=== PATIENT | female | born 1985 ===

== ENCOUNTER 2021-02-04 11:19 | Emergency (ER) | payer SELFPAY ==
[~2021-02-04] VITALS: Ht 167.6 cm; Wt 75.0 kg
--- NOTE | 2021-02-04 12:07 | NUR ---
FIRST CONTACT: C/O LOWER ABD PAIN RADIATES TO RUQ X2 DAYS, +N/V/D. PT TO BED AND POSITIONED TO COMFORT. ATTACHED TO MONITORS. VSS. AWAITING ORDERS.
--- NOTE | 2021-02-04 12:47 | NUR ---
DR. SALOMON TO BEDSIDE FOR EVALUAITON.
[2021-02-04] MEDS ORDERED: ONDANSETRON 2MG/ML, 2ML ONE (12:50)
[2021-02-04] MEDS ORDERED: MORPHINE SULFATE 4 MG/ML, 1ML ONE ×2 (12:50→13:25)
[2021-02-04] MEDS: MORPHINE SULFATE 4 MG/ML, 1ML IVPush PRN ×2 (12:55→13:27)
[2021-02-04 12:58] VITALS: BP 117/85
--- NOTE | 2021-02-04 12:58 | NUR ---
PT MEDIATED PER EMAR. VSS. DR. SALOMON EVALUATED
[2021-02-04] MEDS ORDERED: SODIUM CHLORIDE FLUSH 10ML SYR IVF ONE (13:00)
[2021-02-04] MEDS ORDERED: ONDANSETRON 2MG/ML, 2ML IVPush ONE (13:00)
[2021-02-04] MEDS ORDERED: SODIUM CHLORIDE 0.9% 1,000ML IVBOLUS ONE (13:00)
[2021-02-04 13:02] LABS: BASOPHILS % (AUTO) 0 % (0-1); EOSINOPHILS % (AUTO) 2 % (1-7); LYMPHOCYTES % (AUTO) 36 % (22-44); MEAN CORPUSCULAR HEMOGLOBIN 28.7 pg (27.0-34.8); MEAN CORPUSCULAR HGB CONC 33.3 g/dL (32.4-35.8); MEAN PLATELET VOLUME 8.9 fL (7.4-10.4); MONOCYTES % (AUTO) 4 % (2-9); NEUTROPHILS % (AUTO) 58 % (42-75); PLATELET COUNT 259 x10^3/uL (130-400); RED BLOOD COUNT 4.97 x10^6/uL (3.82-5.3); RED CELL DISTRIBUTION WIDTH 14.4 % (9.6-15.2)
--- NOTE | 2021-02-04 13:09 | NUR ---
report to nik wayne
[2021-02-04 13:11] LABS: ALANINE AMINOTRANSFERASE 30 U/L (12-78); ALBUMIN 3.8 g/dL (3.4-5.0); ANION GAP 4 mmol/L (5-15); CALCIUM 8.8 mg/dL (8.5-10.1); CHLORIDE 111 mmol/L (98-107)
--- NOTE | 2021-02-04 13:16 | NUR ---
report received from Lilliam wayne
[2021-02-04 13:17] LABS: ALKALINE PHOSPHATASE 165 U/L (45-117); BILIRUBIN,TOTAL 0.3 mg/dL (0.2-1.0); TOTAL PROTEIN 8.1 g/dL (6.4-8.2)
--- NOTE | 2021-02-04 13:31 | NUR ---
pt states she will not go to [place] until she "gets something for pain". pt medicated per order, tolerated well. CT states they will come back in 10 mins.
--- NOTE | 2021-02-04 13:56 | NUR ---
pt states they want to leave, PIV dc'd with tip intact, pt educated on discharge, verbalized understanding. ambulatory with steady gait
== END 2021-02-04 15:17 | disposition left against medical advice (07) ==
LOC: ED 14:57
DX: R10.30 Lower abdominal pain, unspecified (principal); R11.2 Nausea with vomiting, unspecified; R63.0 Anorexia; F17.200 Nicotine dependence, unspecified, uncomplicated; Z68.30 Body mass index [BMI] 30.0-30.9, adult
CPT/HCPCS: 36415; 80053; 84703; 85025; 96361; 96374; 96375; 96376; 99284; J2270; J2405; J7030